=== PATIENT | female | born 1950 | race Caucasian/White ===

== ENCOUNTER 2019-02-20 03:54 | Emergency (ER) | payer OTHER ==
[~2019-02-20] VITALS: Ht 170.2 cm; Wt 51.3 kg
[2019-02-20 03:55] VITALS: BP 142/78
[2019-02-20] MEDS ORDERED: DEXAMETHASONE SOD PHOSPHATE 10 MG/ML VIAL ONE (04:23)
[2019-02-20] MEDS ORDERED: DEXAMETHASONE SOD PHOSPHATE 4 MG/ML VIAL IM ONE (04:30)
== END 2019-02-20 07:07 ==
LOC: ER 04:03
DX: H01.006 Unspecified blepharitis left eye, unspecified eyelid (principal); H01.003 Unspecified blepharitis right eye, unspecified eyelid; J44.9 Chronic obstructive pulmonary disease, unspecified; F32.9 Major depressive disorder, single episode, unspecified; M19.90 Unspecified osteoarthritis, unspecified site; Z60.2 Problems related to living alone
CPT/HCPCS: 96372; 99283; J1100

== ENCOUNTER 2021-02-04 13:45 | Inpatient (IN) | payer MEDICARE, OTHER ==
[~2021-02-04] VITALS: Ht 172.7 cm; Wt 47.2 kg
[2021-02-04] MEDS ORDERED: BLOOD SUGAR DIAGNOSTIC 1 EACH STRIP IN ONE (14:30)
[2021-02-04] MEDS ORDERED: MAGNESIUM HYDROXIDE 30 ML UDC PO PRN (14:30)
[2021-02-04] MEDS ORDERED: LORAZEPAM 0.5 MG TABLET PO PRN (14:30)
[2021-02-04] MEDS ORDERED: MAG HYDROX/AL HYDROX/SIMETH 30 ML UDC PO PRN (14:30)
[2021-02-04 16:09] VITALS: BP 143/77
[2021-02-04] MEDS ORDERED: FLUT1DIS3 INH (16:40)
[2021-02-04] MEDS ORDERED: CHLO25CA22 PO (16:40)
[2021-02-04] MEDS ORDERED: HYDR50TA61 PO (16:40)
[2021-02-04] MEDS ORDERED: TRAZ-182 PO (16:40)
[2021-02-04] MEDS ORDERED: ALBU18HF2 INH (16:40)
[2021-02-04] MEDS ORDERED: VENL225T PO (16:40)
[2021-02-04] MEDS ORDERED: ALBUTEROL FS 2.5 MG/0.5 ML VIAL.NEB NEB PRN (19:00)
[2021-02-04 19:59] VITALS: BP 152/77
[2021-02-04] MEDS: TEMAZEPAM 7.5 MG CAPSULE PO PRN (21:29)
[2021-02-05 07:27] LABS: ALBUMIN 3.1 g/dL (3.4-5.0); BILIRUBIN,TOTAL 0.4 mg/dL (0.2-1.0); CALCIUM, SERUM 8.8 mg/dL (8.5-10.1); CREATININE 0.7 mg/dL (0.6-1.3); POTASSIUM 3.5 mmol/L (3.5-5.1); TOTAL PROTEIN, SERUM 6.8 g/dL (6.4-8.2)
[2021-02-05 08:00] VITALS: BP 112/65
[2021-02-05] MEDS ORDERED: FLUTICASONE/SALMETEROL 1 DISK IH SCH (09:00)
[2021-02-05] MEDS ORDERED: CHLORDIAZEPOXIDE HCL 25 MG CAPSULE PO PRN (10:30)
[2021-02-05] MEDS: FLUTICASONE/VILANTEROL 1 EACH BLST.W.DEV IH SCH (10:51)
[2021-02-05] MEDS: ACETAMINOPHEN 325 MG TABLET PO PRN (10:55)
[2021-02-05] MEDS: CHLORDIAZEPOXIDE HCL 25 MG CAPSULE PO SCH ×2 (12:19→16:57)
[2021-02-05] MEDS ORDERED: GABAPENTIN 300 MG CAPSULE PO SCH ×2 (13:00→17:00)
[2021-02-05] MEDS ORDERED: GABAPENTIN 100 MG CAPSULE PO SCH (13:00)
[2021-02-05] MEDS: NICOTINE PATCH (21MG) 21 MG PATCH.TD24 TD SCH (15:22)
[2021-02-05 16:19] VITALS: BP 141/89
[2021-02-05 19:57] VITALS: BP 139/86
[2021-02-05 20:04] VITALS: BP 139/86
[2021-02-05] MEDS: ATORVASTATIN 10 MG TABLET PO SCH (21:25)
[2021-02-05] MEDS: OLANZAPINE 2.5 MG TABLET PO SCH (21:26)
[2021-02-05] MEDS: TEMAZEPAM 7.5 MG CAPSULE PO PRN (22:21)
[2021-02-06 08:00] VITALS: BP 128/78
[2021-02-06] MEDS: GABAPENTIN 100 MG CAPSULE PO SCH ×3 (09:23→17:24)
[2021-02-06] MEDS: FLUTICASONE/VILANTEROL 1 EACH BLST.W.DEV IH SCH (09:23)
[2021-02-06] MEDS: NICOTINE PATCH (21MG) 21 MG PATCH.TD24 TD SCH (09:23)
[2021-02-06] MEDS: VENLAFAXINE XR 150 MG CAP.SR.24H PO SCH (09:23)
[2021-02-06] MEDS: ENSURE ENLIVE 237 ML LIQUID (VANILLA) PO SCH ×2 (11:08→17:22)
[2021-02-06 13:27] LABS: BILIRUBIN,URINE NEGATIVE (NEGATIVE); COLOR,URINE YELLOW (YELLOW); LEUKOCYTE ESTERASE ,URINE MODERATE (NEGATIVE); NITRITE, URINE NEGATIVE (NEGATIVE); PROTEIN,URINE NEGATIVE (NEGATIVE); UGLUCOSE NEGATIVE (NEGATIVE); UROBILINOGEN,URINE 0.2 EU/dL (0.2)
[2021-02-06] MEDS ORDERED: LORAZEPAM 1 MG TABLET PO STA (14:22)
[2021-02-06] MEDS ORDERED: OLANZAPINE ZYDIS 5 MG TAB.RAPDIS SL STA (14:22)
[2021-02-06 16:07] LABS: BACTERIA,URINE Many /HPF (None Seen); SQUAMOUS EPITHELIAL CELL,UR Few /HPF (None Seen)
[2021-02-06 16:23] VITALS: BP 140/82
[2021-02-06] MEDS: CEPHALEXIN MONOHYDRATE 500 MG CAPSULE PO SCH (17:24)
[2021-02-06 20:09] VITALS: BP 146/99
[2021-02-06] MEDS: OLANZAPINE 2.5 MG TABLET PO SCH (21:18)
[2021-02-06] MEDS: ATORVASTATIN 10 MG TABLET PO SCH (21:19)
[2021-02-06] MEDS: TEMAZEPAM 7.5 MG CAPSULE PO PRN (21:23)
[2021-02-07] MEDS: ACETAMINOPHEN 325 MG TABLET PO PRN ×2 (05:25→11:34)
[2021-02-07 08:00] VITALS: BP 129/83
[2021-02-07] MEDS: ENSURE ENLIVE 237 ML LIQUID (VANILLA) PO SCH ×2 (08:49→16:33)
[2021-02-07] MEDS: NICOTINE PATCH (21MG) 21 MG PATCH.TD24 TD SCH (08:54)
[2021-02-07] MEDS: GABAPENTIN 100 MG CAPSULE PO SCH ×3 (08:54→16:32)
[2021-02-07] MEDS: VENLAFAXINE XR 150 MG CAP.SR.24H PO SCH (08:54)
[2021-02-07] MEDS: FLUTICASONE/VILANTEROL 1 EACH BLST.W.DEV IH SCH (08:54)
[2021-02-07] MEDS: CEPHALEXIN MONOHYDRATE 500 MG CAPSULE PO SCH ×2 (08:54→16:32)
[2021-02-07 16:00] VITALS: BP 141/94
[2021-02-07 20:00] VITALS: BP 141/65
[2021-02-07 20:05] VITALS: BP 141/65
[2021-02-07] MEDS: OLANZAPINE 2.5 MG TABLET PO SCH (21:30)
[2021-02-07] MEDS: ATORVASTATIN 10 MG TABLET PO SCH (21:30)
[2021-02-07] MEDS: TEMAZEPAM 7.5 MG CAPSULE PO PRN (21:56)
[2021-02-07] MEDS: LORAZEPAM 0.5 MG TABLET PO PRN (23:53)
[2021-02-08] MEDS: ACETAMINOPHEN 325 MG TABLET PO PRN ×2 (05:24→21:26)
[2021-02-08 08:00] VITALS: BP 148/90
[2021-02-08 08:04] VITALS: BP 148/90
[2021-02-08] MEDS ORDERED: VENLAFAXINE XR 75 MG CAP.SR.24H PO SCH (09:00)
[2021-02-08] MEDS: NICOTINE PATCH (21MG) 21 MG PATCH.TD24 TD SCH (09:09)
[2021-02-08] MEDS: FLUTICASONE/VILANTEROL 1 EACH BLST.W.DEV IH SCH (09:09)
[2021-02-08] MEDS: GABAPENTIN 100 MG CAPSULE PO SCH ×3 (09:10→16:25)
[2021-02-08] MEDS: CEPHALEXIN MONOHYDRATE 500 MG CAPSULE PO SCH ×2 (09:11→16:25)
[2021-02-08] MEDS: ENSURE ENLIVE 237 ML LIQUID (VANILLA) PO SCH ×2 (09:12→17:14)
[2021-02-08 15:56] VITALS: BP 170/96
[2021-02-08 16:00] VITALS: BP 120/99
[2021-02-08 20:00] VITALS: BP 128/113
[2021-02-08] MEDS: OLANZAPINE 2.5 MG TABLET PO SCH (22:08)
[2021-02-08] MEDS: ATORVASTATIN 10 MG TABLET PO SCH (22:08)
[2021-02-08] MEDS: TEMAZEPAM 7.5 MG CAPSULE PO PRN (22:38)
[2021-02-09] MEDS: LORAZEPAM 0.5 MG TABLET PO PRN ×3 (01:19→19:56)
[2021-02-09 08:00] VITALS: BP 133/90
[2021-02-09] MEDS: ENSURE ENLIVE 237 ML LIQUID (VANILLA) PO SCH ×2 (08:36→17:19)
[2021-02-09] MEDS: FLUTICASONE/VILANTEROL 1 EACH BLST.W.DEV IH SCH (08:38)
[2021-02-09] MEDS: NICOTINE PATCH (21MG) 21 MG PATCH.TD24 TD SCH (08:39)
[2021-02-09] MEDS: GABAPENTIN 100 MG CAPSULE PO SCH ×3 (08:40→17:20)
[2021-02-09] MEDS: VENLAFAXINE XR 75 MG CAP.SR.24H PO SCH (08:58)
[2021-02-09] MEDS: CEPHALEXIN MONOHYDRATE 500 MG CAPSULE PO SCH ×2 (09:06→17:22)
[2021-02-09 13:49] LABS: BASOPHILS # (AUTO) 0.2 K/uL (0.0-0.2); BASOPHILS % (AUTO) 1.2 % (0.0-2.0); EOSINOPHILS % (AUTO) 1.3 % (0.0-6.0); HEMATOCRIT 40 % (33-45); HEMOGLOBIN 13.3 g/dL (11.5-14.8); LYMPHOCYTES # (AUTO) 1.6 K/uL (0.8-4.8); LYMPHOCYTES % (AUTO) 10.7 % (20.0-44.0); MEAN CORPUSCULAR HGB CONC 33 g/dl (31.0-36.0); MEAN CORPUSCULAR VOLUME 104 fL (82-100); MONOCYTES # (AUTO) 1.2 K/uL (0.1-1.30); NEUTROPHILS # (AUTO) 12.1 K/uL (1.8-8.9); NEUTROPHILS % (AUTO) 78.8 % (43.0-81.0); PLATELET COUNT (AUTO) 373 K/uL (150-450); RED BLOOD CELL COUNT(AUTO) 3.86 MIL/uL (4.0-5.2); WHITE BLOOD COUNT (AUTO) 15.4 K/uL (4.3-11.0)
[2021-02-09 14:36] LABS: CALCIUM, SERUM 9.6 mg/dL (8.5-10.1); CREATININE 0.8 mg/dL (0.6-1.3); POTASSIUM 4.8 mmol/L (3.5-5.1)
[2021-02-09 16:00] VITALS: BP 146/90
[2021-02-09 21:12] VITALS: BP 141/83
[2021-02-09] MEDS: ATORVASTATIN 10 MG TABLET PO SCH (21:52)
[2021-02-09] MEDS: OLANZAPINE 2.5 MG TABLET PO SCH (21:52)
[2021-02-10 08:00] VITALS: BP 141/98
[2021-02-10] MEDS: ENSURE ENLIVE 237 ML LIQUID (VANILLA) PO SCH ×2 (08:06→17:17)
[2021-02-10] MEDS: GABAPENTIN 100 MG CAPSULE PO SCH ×3 (08:08→17:17)
[2021-02-10] MEDS: NICOTINE PATCH (21MG) 21 MG PATCH.TD24 TD SCH (08:08)
[2021-02-10] MEDS: VENLAFAXINE XR 75 MG CAP.SR.24H PO SCH (08:08)
[2021-02-10] MEDS: CEPHALEXIN MONOHYDRATE 500 MG CAPSULE PO SCH (08:22)
[2021-02-10] MEDS: FLUTICASONE/VILANTEROL 1 EACH BLST.W.DEV IH SCH (08:23)
[2021-02-10] MEDS: ACETAMINOPHEN 325 MG TABLET PO PRN ×2 (12:34→19:45)
[2021-02-10 16:07] VITALS: BP 118/81
[2021-02-10 20:00] VITALS: BP 103/82
[2021-02-10] MEDS: LORAZEPAM 0.5 MG TABLET PO PRN (20:53)
[2021-02-10] MEDS: SULFAMETH/TRIMETH 800/160 MG 1 UDTAB TABLET PO SCH (21:11)
[2021-02-10] MEDS: ATORVASTATIN 10 MG TABLET PO SCH (21:11)
[2021-02-10] MEDS: OLANZAPINE 2.5 MG TABLET PO SCH (21:12)
[2021-02-11] MEDS: ACETAMINOPHEN 325 MG TABLET PO PRN ×3 (05:47→22:55)
[2021-02-11 08:00] VITALS: BP 106/64
[2021-02-11] MEDS: FLUTICASONE/VILANTEROL 1 EACH BLST.W.DEV IH SCH (08:40)
[2021-02-11] MEDS: ENSURE ENLIVE 237 ML LIQUID (VANILLA) PO SCH ×2 (08:40→16:16)
[2021-02-11] MEDS: GABAPENTIN 100 MG CAPSULE PO SCH ×3 (08:42→16:16)
[2021-02-11] MEDS: SULFAMETH/TRIMETH 800/160 MG 1 UDTAB TABLET PO SCH ×2 (08:42→21:18)
[2021-02-11] MEDS: NICOTINE PATCH (21MG) 21 MG PATCH.TD24 TD SCH (08:42)
[2021-02-11] MEDS: VENLAFAXINE XR 75 MG CAP.SR.24H PO SCH (08:42)
[2021-02-11 16:00] VITALS: BP 118/65
[2021-02-11 20:15] VITALS: BP 111/63
[2021-02-11] MEDS: ATORVASTATIN 10 MG TABLET PO SCH (21:18)
[2021-02-11] MEDS: OLANZAPINE 2.5 MG TABLET PO SCH (21:18)
[2021-02-11] MEDS: TEMAZEPAM 7.5 MG CAPSULE PO PRN (22:11)
[2021-02-12 08:00] VITALS: BP 147/61
[2021-02-12] MEDS: NICOTINE PATCH (21MG) 21 MG PATCH.TD24 TD SCH (08:49)
[2021-02-12] MEDS: SULFAMETH/TRIMETH 800/160 MG 1 UDTAB TABLET PO SCH ×2 (08:50→21:03)
[2021-02-12] MEDS: VENLAFAXINE XR 75 MG CAP.SR.24H PO SCH (08:50)
[2021-02-12] MEDS: GABAPENTIN 100 MG CAPSULE PO SCH ×3 (08:51→17:23)
[2021-02-12] MEDS: ENSURE ENLIVE 237 ML LIQUID (VANILLA) PO SCH ×2 (08:52→17:23)
[2021-02-12] MEDS: FLUTICASONE/VILANTEROL 1 EACH BLST.W.DEV IH SCH (08:54)
[2021-02-12] MEDS: ACETAMINOPHEN 325 MG TABLET PO PRN (13:32)
[2021-02-12 16:00] VITALS: BP 150/57
[2021-02-12 21:01] VITALS: BP 114/63
[2021-02-12] MEDS: OLANZAPINE 2.5 MG TABLET PO SCH (21:04)
[2021-02-12] MEDS: TEMAZEPAM 7.5 MG CAPSULE PO PRN (21:04)
[2021-02-12] MEDS: ATORVASTATIN 10 MG TABLET PO SCH (21:05)
[2021-02-13] MEDS: LORAZEPAM 0.5 MG TABLET PO PRN (00:21)
[2021-02-13 08:00] VITALS: BP 117/73
[2021-02-13] MEDS: ENSURE ENLIVE 237 ML LIQUID (VANILLA) PO SCH ×2 (08:00→16:19)
[2021-02-13] MEDS: FLUTICASONE/VILANTEROL 1 EACH BLST.W.DEV IH SCH (09:02)
[2021-02-13] MEDS: ACETAMINOPHEN 325 MG TABLET PO PRN (09:03)
[2021-02-13] MEDS: VENLAFAXINE XR 75 MG CAP.SR.24H PO SCH (09:03)
[2021-02-13] MEDS: GABAPENTIN 100 MG CAPSULE PO SCH ×3 (09:03→16:21)
[2021-02-13] MEDS: NICOTINE PATCH (21MG) 21 MG PATCH.TD24 TD SCH (09:03)
[2021-02-13] MEDS: SULFAMETH/TRIMETH 800/160 MG 1 UDTAB TABLET PO SCH ×2 (09:03→21:25)
[2021-02-13 16:08] VITALS: BP 91/61
[2021-02-13 20:01] VITALS: BP 110/87
[2021-02-13] MEDS: OLANZAPINE 2.5 MG TABLET PO SCH (21:25)
[2021-02-13] MEDS: ATORVASTATIN 10 MG TABLET PO SCH (21:25)
[2021-02-14] MEDS: ENSURE ENLIVE 237 ML LIQUID (VANILLA) PO SCH (07:35)
[2021-02-14 08:00] VITALS: BP 125/71
[2021-02-14] MEDS: NICOTINE PATCH (21MG) 21 MG PATCH.TD24 TD SCH (08:39)
[2021-02-14] MEDS: VENLAFAXINE XR 75 MG CAP.SR.24H PO SCH (08:40)
[2021-02-14] MEDS: GABAPENTIN 100 MG CAPSULE PO SCH (08:40)
[2021-02-14] MEDS: FLUTICASONE/VILANTEROL 1 EACH BLST.W.DEV IH SCH (08:40)
== END 2021-02-14 12:15 | disposition home or self-care (01) | DRG 885 ==
LOC: GPS 13:50
PROVIDERS: ADMIT Psychiatry & Neurology Psychiatry; ATTEND Internal Medicine
DX: F33.2 Major depressive disorder, recurrent severe without psychotic features (principal); N39.0 Urinary tract infection, site not specified; F29 Unspecified psychosis not due to a substance or known physiological condition; F41.9 Anxiety disorder, unspecified; F10.20 Alcohol dependence, uncomplicated; Y90.9 Presence of alcohol in blood, level not specified; E78.5 Hyperlipidemia, unspecified; J44.9 Chronic obstructive pulmonary disease, unspecified; B96.20 Unspecified Escherichia coli [E. coli] as the cause of diseases classified elsewhere; Z79.899 Other long term (current) drug therapy; I10 Essential (primary) hypertension
CPT/HCPCS: 36415; 80048-TC; 80053-TC; 80061-TC; 81001; 84443-TC; 85025-TC; 87081-TC; 87086-TC; 87186-TC; 97116-TC; 97530-TC